=== PATIENT | male | born 1990 | race African-American/Black ===

== ENCOUNTER 2023-06-18 13:14 | Emergency (ER) | payer MEDICAID ==
[~2023-06-18] VITALS: Ht 180.3 cm; Wt 82.7 kg
[2023-06-18 14:37] VITALS: BP 145/91; PULSE 82; RESP 18; TEMP 98.1; O2SAT 98
[2023-06-18] MEDS ORDERED: CLIN300C70 PO (14:43)
[2023-06-18] MEDS ORDERED: IBUP-1456 PO (14:43)
[2023-06-18] MEDS ORDERED: HYDROcodone-ACET 5/325MG TAB PO ONE (14:45)
== END 2023-06-18 14:54 | disposition home or self-care (01) ==
LOC: ER 13:14
DX: K04.7 Periapical abscess without sinus (principal)